=== PATIENT | female | born 1945 | race Caucasian/White ===

== ENCOUNTER → 2018-04-21 | Outpatient (CLI) | payer OTHER ==
[~2018-04-21] MED LIST: ADULT LOW DOSE81 MG; AMLODIPINE BESYL5 MG; ASA5UEC PO; CALCIUM 600 +1 EAC5 PO; CENTRUM SILVER1 EAC4 PO; CIPRO500 MG PO; DIFLUCAN200 MG PO; FISH OIL 1,0001 EAC5 PO; FISH OIL 1,2001 EAC4 PO; FUROSEMIDE 40 M40 M1; FUROSEMIDE 40 M40 M1 PO; HYDRALAZINE 2525 M1; HYDRALAZINE 2525 M1 PO; HYDROCHLOROTHIA25 M1; HYDROCODONE-AP1 EAC6 PO; K-DUR 20 MEQ T20 MEQ PO; LIPITOR 20 MG PO; LISINOPRIL40 MG; NITROSTAT0.4 MG SL; Nitrostat SUBLING; ONDANSETRON HCL4 M2 PO; POTASSIUM PO; POTASSIUM20; TOPROL XL50 MG PO; Toprol Xl PO; VITAMIN C PO; VITAMINC500 PO
== END ==
LOC: M.RAD 13:43
DX: Z12.31 Encounter for screening mammogram for malignant neoplasm of breast (principal)

== ENCOUNTER 2020-01-11 11:09 | Emergency (ER) | payer OTHER ==
[~2020-01-11] VITALS: Ht 157.5 cm; Wt 90.7 kg
[2020-01-11] MEDS ORDERED: ASA81BEC PO (11:15)
[2020-01-11 12:11] VITALS: BP 160/81
== END 2020-01-11 12:12 | disposition home or self-care (01) ==
LOC: M.ERS 11:09
DX: S69.82XA Other specified injuries of left wrist, hand and finger(s), initial encounter (principal); I10 Essential (primary) hypertension; Z90.710 Acquired absence of both cervix and uterus; X58.XXXA Exposure to other specified factors, initial encounter; Y93.89 Activity, other specified; Y92.89 Other specified places as the place of occurrence of the external cause; Y99.8 Other external cause status